=== PATIENT | female | born 1975 | race African-American/Black ===

== ENCOUNTER → 2016-08-01 | Outpatient (CLI) | payer OTHER | LOC: FIMAGING 12:58 | PROVIDERS: ATTEND Nurse Practitioner | DX: N92.0 Excessive and frequent menstruation with regular cycle (principal); D25.9 Leiomyoma of uterus, unspecified; N83.201 Unspecified ovarian cyst, right side ==

== ENCOUNTER 2016-10-02 06:02 | Day surgery (SDC) | payer OTHER ==
[2016-10-02] MEDS ORDERED: LIDOCAINE 1% 2 ML INJ ONE (06:09)
[2016-10-02] MEDS ORDERED: LIDOCAINE 1% 5 ML SDV ID PRN (06:50)
[2016-10-02] MEDS ORDERED: LR 1,000 ML IV ONE (06:50)
[2016-10-02] MEDS ORDERED: SILVER NITRATE APPLICATOR 1 APPL TP ONE (06:53)
[2016-10-02] MEDS ORDERED: MIDAZOLAM 2 MG/2 ML VIAL ONE (07:23)
[2016-10-02] MEDS ORDERED: fentaNYL 100 MCG/2 ML INJ ONE ×4 (07:24→10:37)
[2016-10-02] MEDS ORDERED: PROPOFOL 200 MG/20 ML VIAL ONE (07:25)
[2016-10-02] MEDS ORDERED: LIDOCAINE 2% 5 ML SDV ONE (07:25)
[2016-10-02] MEDS ORDERED: VASOPRESSIN 20 UNIT/ML VIAL ONE (07:25)
[2016-10-02] MEDS ORDERED: DEXAMETHASONE 4 MG/ML VIAL ONE ×2 (07:42)
[2016-10-02] MEDS ORDERED: LIDOCAINE 1% 30 ML SDV ONE (07:49)
[2016-10-02] MEDS ORDERED: MEPERIDINE 25 MG/ML SYR ONE (10:08)
[2016-10-02] MEDS ORDERED: LABETALOL HCL 50 MG/10 ML SYR ONE (10:08)
[2016-10-02] MEDS ORDERED: HYDROmorphONE/DILAUDID 1 MG/ML SYR ONE (10:37)
[2016-10-02] MEDS ORDERED: HYDROCODONE/APAP 5/325 TAB PO PRN (11:30)
[2016-10-02] MEDS ORDERED: ONDANSETRON 4 MG/2 ML VIAL IVP PRN (11:31)
--- NOTE | 2016-10-02 14:01 | GOP ---
[f rep st] OPERATIVE REPORT DATE OF OPERATION: 10/02/2016 SURGEON: Brenda Omalley MD ANESTHESIA: General with LMA. PREOPERATIVE DIAGNOSIS: Abnormal uterine bleeding and uterine mass noted on ultrasound. POSTOPERATIVE DIAGNOSIS: Uterine fibroid. PROCEDURE PERFORMED: Hysteroscopic fibroid resection. FINDINGS: Enlarged, retroverted uterus. Upon insertion of the camera, the patient was found to have a large fibroid filling the entire uterine cavity. This was completely resected. Upon resection, she was noted to have an otherwise normal intrauterine cavity and normal bilateral cornea with fallopian tube ostia. FLUID DEFICIT: 950 ml normal saline ESTIMATED BLOOD LOSS: Less than 10 mL. INDICATIONS: The patient is a 41-year-old P1, who presents with abnormal bleeding, not responsive to medication. A pelvic ultrasound demonstrates a mass at the uterine fundus, and it was recommended to proceed with diagnostic hysteroscopy and resection of mass. We reviewed the risks and benefits, and she desired to proceed with surgery. DESCRIPTION OF PROCEDURE: The patient was brought to the operating room, and a time-out was performed. She was placed under general anesthesia with LMA without complication. She was prepped and draped in the normal sterile fashion in low lithotomy position. Her bladder was drained prior to the procedure. Speculum was placed, and the anterior lip of the cervix was grasped with a single-tooth tenaculum. 15 mL of dilute vasopressin was injected circumferentially around the cervix. The cervix was easily dilated to 5 mm, and a 5 mm hysteroscope was introduced with the above findings. That hysteroscope was then removed. The cervix was then sequentially dilated to 9 mm , and the larger hysteroscope was introduced in order to be able to utilize the Truclear fibroid morcellator. This morcellator was introduced, and the morcellation and resection of the fibroid was begun. Given the very large size of the fibroid, it was a very extensive morcellation and took over 1 hour. The fibroid was noted to have a thick stalk coming from the right cornu which was resected. Upon completion of the procedure, the entire fibroid had been resected, and all instruments were removed. Hemostasis was noted. Fluid deficit was 950 mL, as noted above. The patient was awakened and brought to the recovery room in good condition. Counts were correct x2. /[id number]/MODL MTDD
== END 2016-10-02 12:25 | disposition home or self-care (01) ==
LOC: FSGY 06:02
PROVIDERS: ATTEND Obstetrics & Gynecology
PROC: 0UB98ZZ Excision of Uterus, Via Natural or Artificial Opening Endoscopic (ICD-10-PCS; principal; 2016-10-02 07:30)
DX: D25.9 Leiomyoma of uterus, unspecified (principal)
CPT/HCPCS: 58561; C1782; J1100; J1170; J2250; J2704; J3010

== ENCOUNTER → 2016-11-17 | Outpatient (CLI) | payer OTHER | LOC: BMCIMAGING 14:33 | PROVIDERS: ATTEND Internal Medicine | DX: M50.31 Other cervical disc degeneration, high cervical region (principal); M50.321 Other cervical disc degeneration at C4-C5 level; M50.322 Other cervical disc degeneration at C5-C6 level; M50.323 Other cervical disc degeneration at C6-C7 level ==

== ENCOUNTER → 2016-11-17 | Outpatient (CLI) | payer OTHER | LOC: FLAB 15:44 | PROVIDERS: ATTEND Internal Medicine | DX: S06.0X0A Concussion without loss of consciousness, initial encounter (principal) ==

== ENCOUNTER → 2017-03-13 | Outpatient (CLI) | payer OTHER | LOC: BMCIMAGING 13:57 | PROVIDERS: ATTEND Orthopaedic Surgery Hand Surgery | DX: S62.521A Displaced fracture of distal phalanx of right thumb, initial encounter for closed fracture (principal); M79.671 Pain in right foot ==

== ENCOUNTER → 2017-04-10 | Outpatient (CLI) | payer OTHER | LOC: BMCIMAGING 14:04 | PROVIDERS: ATTEND Orthopaedic Surgery Hand Surgery | DX: S62.521A Displaced fracture of distal phalanx of right thumb, initial encounter for closed fracture (principal) ==

== ENCOUNTER → 2018-10-19 | Outpatient (CLI) | payer OTHER | LOC: FIMAGING 11:12 | PROVIDERS: ATTEND Physician Assistant Medical | DX: S69.92XA Unspecified injury of left wrist, hand and finger(s), initial encounter (principal); M20.032 Swan-neck deformity of left finger(s) ==